=== PATIENT | male | born 2000 | race Caucasian/White ===

== ENCOUNTER 2020-03-07 16:54 | Emergency (ER) | payer OTHER | END 2020-03-07 18:02 | disposition home or self-care (01) | LOC: ERS 16:54 | DX: S01.01XA Laceration without foreign body of scalp, initial encounter (principal); V69.9XXA Occupant (driver) (passenger) of heavy transport vehicle injured in unspecified traffic accident, initial encounter | CPT/HCPCS: 12001 ==